=== PATIENT | female | born 1945 | race Caucasian/White ===

== ENCOUNTER → 2021-07-06 | Outpatient (CLI) | payer MEDICARE, OTHER ==
--- NOTE | 2021-07-06 08:53 | US ---
EXAMINATION TYPE: US liver DATE OF EXAM: 07/06/2021 COMPARISON: NONE CLINICAL HISTORY: E83.119 HEMOCHROMATOSIS UNSPECIFIED. EXAM MEASUREMENTS: Liver Length: 13.9 cm Gallbladder Wall: 0.2 cm CBD: 0.3 cm Right Kidney: 7.9 x 3.3 x 4.2 cm Pancreas: visualized portions wnl, limited by overlying midline bowel gas Liver: wnl Gallbladder: wnl Evidence for sonographic Martines's sign: no CBD: visualized portions wnl, limited by overlying bowel gas Right Kidney: wnl IMPRESSION: No distinct abnormality appreciated.
[2021-07-06 14:53] LABS: HGB 13.2 g/dL (12.0-15.0); MCH 30.3 pg (27.0-32.0); MCHC 31.4 g/dL (32.0-37.0); MCV 96.3 fL (80.0-97.0); Mean Platelet Volume 11.6 fL (9.5-12.2); NRBC Per 100 WBC 0 /100 WBCS (0.0-0.0); Platelet Count 246 X 10*3/uL (140-440); RBC 4.36 X 10*6/uL (4.10-5.20); RDW 13.1 % (11.5-14.5); WBC 5.05 X 10*3/uL (4.50-10.00)
[2021-07-06 16:11] LABS: ALT 11 U/L (8-44); AST 18 U/L (13-35); Albumin 4.3 g/dL (3.8-4.9); Albumin/Globulin Ratio 2.07 (1.60-3.17); Alkaline Phosphatase 88 U/L (41-126); Blood Urea Nitrogen 15.6 mg/dL (9.0-27.0); Chloride 107 mmol/L (96-109); Chol/HDL Ratio 3.11 Ratio; Ferritin 15.9 ng/mL (10.0-291.0); Globulin 2.1 g/dL (1.6-3.3); Glucose 93 mg/dL (70-110); LDL Cholesterol,Calculated 127.5 mg/dL (0.0-131.0); Non-African American GFR(CKD) 51.8 (60.0-200.0); Potassium 4.6 mmol/L (3.5-5.5); Sodium 146 mmol/L (135-145); Total Protein 6.4 g/dL (6.2-8.2)
== END | disposition home or self-care (01) ==
LOC: RADUSWWP 08:18
PROVIDERS: ATTEND Internal Medicine
DX: Z00.01 Encounter for general adult medical examination with abnormal findings (principal); Z13.220 Encounter for screening for lipoid disorders; E83.119 Hemochromatosis, unspecified; N18.32 Chronic kidney disease, stage 3b
CPT/HCPCS: 36415; 76705; 80053; 80061; 82105; 82728; 84443; 85027

== ENCOUNTER → 2022-09-05 | Outpatient (CLI) | payer MEDICARE, OTHER ==
--- NOTE | 2022-09-05 19:32 | BD ---
EXAMINATION TYPE: Axial Bone Density DATE OF EXAM: 09/05/2022 CLINICAL HISTORY: 76 years old Female. ICD-10 CODE: N951 POST ANDI SYNDROME Height: 60in Weight: 117lb FRAX RISK QUESTIONS: Secondary Osteoporosis: RISK FACTORS HISTORY OF: Active: yes Postmenopausal woman: yes Lost more than 2 inches in height since high school: yes MEDICATIONS: Additional Medications: bp med Additional History: EXAM MEASUREMENTS: Bone mineral densitometry was performed using the [employer] System. Bone mineral density as measured about the Lumbar spine is: ----- L1-L4(G/cm2): 0.872 T Score Values are as follows: ----- L1: -2.8 ----- L2: -3.1 ----- L3: -2.4 ----- L4: -2.4 ----- L1-L4: -2.6 Z Score Values are as follows: ----- L1: -0.6 ----- L2: -0.8 ----- L3: -0.2 ----- L4: -0.2 ----- L1-L4: -0.4 First dexa at [facility] Bone mineral density about the R hip (g/cm2): 0.755 Bone mineral density about the L hip (g/cm2): 0.740 T Score values are as follows: -----R Neck: -2.1 -----L Neck: -1.7 -----R Total: -2.0 -----L Total: -2.1 Z Score values are as follows: -----R Neck: 0.3 -----L Neck: 0.6 -----R Total: 0.2 -----L Total: 0.1 FRAX%s: The graph provided illustrates a 14.7% chance for a major osteoporotic fx and a 4.5% chance f or the hips probability for fx in 10 years time. IMPRESSION: Osteoporosis (T Score less than -2.5). There is increased fracture risk and therapy is usually indicated based on age. Re-Screen 1-2 years. NOTE: T-SCORE=SD OF THE YOUNG ADULT MEAN.
--- NOTE | 2022-09-06 07:45 | MM ---
Reason for Exam: Screening (asymptomatic). Patient History: Menarche at age 12. First Full-Term at age 20. Postmenopausal. Risk Values: Ruthann 5 year model risk: 1.4%. NCI Lifetime model risk: 2.5%. Prior Study Comparison: No prior studies available for comparison. Tissue Density: There are scattered fibroglandular densities. Findings: Analyzed By CAD. Focal asymmetric prominent tissue posterior upper outer aspect right breast persists distinct lesion on 3-D images. Occasional tiny benign-appearing round calcification bilaterally is present. There is no suspicious group of microcalcifications or new suspicious mass in either breast. Overall Assessment: Benign, BI-RAD 2 Management: Screening Mammogram of both breasts in 1 year. . Patient should continue monthly self-breast exams. A clinical breast exam by your physician is recommended on an annual basis. This exam should not preclude additional follow-up of suspicious palpable abnormalities. Note on Ruthann scores and lifetime risk: 1. A Ruthann score greater than 3% is considered moderate risk. If this is the case, consider specialist referral to assess eligibility for a risk reducing agent. 2. If overall lifetime risk for the development of breast cancer is 20% or higher, the patient may qualify for future screening with alternating mammogram and breast MRI. Electronically signed and approved by: Nikolas Valdez M.D.
== END | disposition home or self-care (01) ==
LOC: RADMAMWWP 12:40
PROVIDERS: ATTEND Internal Medicine
DX: Z12.31 Encounter for screening mammogram for malignant neoplasm of breast (principal); M81.0 Age-related osteoporosis without current pathological fracture; M85.89 Other specified disorders of bone density and structure, multiple sites; Z78.0 Asymptomatic menopausal state
CPT/HCPCS: 77063; 77067; 77080

== ENCOUNTER → 2022-12-16 | Outpatient (CLI) | payer MEDICARE, OTHER ==
--- NOTE | 2022-12-16 11:42 | US ---
EXAMINATION TYPE: US liver DATE OF EXAM: 12/16/2022 COMPARISON: NONE CLINICAL INDICATION: Female, 77 years old with history of E83.110; hereditary hemochromatosis, no sym ptoms TECHNIQUE: Multiple sonographic images of the right upper quadrant are obtained. FINDINGS: EXAM MEASUREMENTS: Liver Length: 14.4 cm Gallbladder Wall: 0.2 cm CBD: 0.7 cm Right Kidney: 8.1 x 3.9 x 3.5 cm FOOD DEMONSTRATOR NOTES:bowel gas limits exam Pancreas: portions seen appear wnl Liver: wnl Gallbladder: wnl Evidence for sonographic Martines's sign: no CBD: wnl Right Kidney: wnl IMPRESSION: No evidence for suspicious observation. Heterogenous hepatic echotexture correlate with serum markers .
== END | disposition home or self-care (01) ==
LOC: RADUSWWP 09:27
PROVIDERS: ATTEND Internal Medicine Hematology & Oncology
DX: E83.110 Hereditary hemochromatosis (principal)
CPT/HCPCS: 76705